=== PATIENT | male | born 1970 ===

== ENCOUNTER 2016-09-01 15:41 | Inpatient (IN) | payer OTHER ==
[~2016-09-01] VITALS: Ht 157.5 cm; Wt 61.9 kg
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
[2016-09-01] MEDS ORDERED: Ondansetron 2 mg/mL 2 mL Inj IVPUSH PRN ×3 (15:50→18:40)
[2016-09-01] MEDS ORDERED: HYDROmorphone 0.5 mg/0.5 mL iSecure Syringe IVPUSH PRN (15:50)
[2016-09-01] MEDS ORDERED: 0.9% Sodium Chloride 2,000 ML IV ONE (15:50)
[2016-09-01 16:12] LABS: BASOPHILS % (AUTO) 0.3 % (0-3); EOSINOPHILS % (AUTO) 0 % (0-5); MONOCYTES % (AUTO) 4.2 % (4-12); Mean Corpuscular Volume 84.2 fL (81-100); Platelet Count 335 bil/L (150-400)
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
[2016-09-01 16:33] LABS: INR 0.94 ratio
[2016-09-01 16:38] LABS: Magnesium 1.7 mg/dL (1.6-2.6)
--- NOTE | 2016-09-01 16:45 | DRSVH ---
PROCEDURE: CT BRAIN WITHOUT CONTRAST ([id number]) INDICATIONS: aloc TECHNIQUE: Noncontrast 4.5 mm thick angled axial sections acquired from the foramen magnum to the vertex, with c oronal reformats. COMPARISON: None. FINDINGS: Image quality: Excellent. CSF spaces: Basal cisterns are patent. No extra-axial fluid collections. Ventricles are normal in size and shape. Brain: No midline shift. No intracranial masses or hemorrhage. Kelley-white matter interface is norm al. Skull and face: Calvarium and visualized facial bones are intact, without suspicious lesions. Sinuses: Visualized sinuses and mastoids are clear. IMPRESSION: No CT evidence of acute intracranial pathology. Dictated by: Ike Mcdonnell M.D. on 09/01/2016 at 16:35 Approved by: Ike Mcdonnell M.D. on 09/01/2016 at 16:38
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
[2016-09-01] MEDS ORDERED: 0.9% Sodium Chloride 1,000 ML IV ONE (17:00)
[2016-09-01] MEDS ORDERED: Lactated Ringer's 1,000 ML IV ONE ×2 (17:00)
[2016-09-01] MEDS ORDERED: Lactated Ringer's 1,000 ML IV SCH (17:13)
[2016-09-01] MEDS ORDERED: Lactated Ringer's 500 ML IV PRN (17:13)
[2016-09-01] MEDS ORDERED: MetoCLOpramide 5 mg/mL 2 mL Inj IVPUSH PRN ×2 (17:15→18:40)
[2016-09-01] MEDS ORDERED: Phenylephrine 10,000 mCg/mL Inj IVPUSH PRN (17:15)
[2016-09-01] MEDS ORDERED: Labetalol 5 mg/mL 4 mL Inj IV PRN (17:15)
[2016-09-01] MEDS ORDERED: Atropine 0.4 mg/mL Inj IVPUSH PRN (17:15)
[2016-09-01] MEDS ORDERED: EPHEDrine Sulfate 50 mg/mL Inj IVPUSH PRN (17:15)
[2016-09-01] MEDS ORDERED: HYDROmorphone 1 mg/mL Inj IVPUSH PRN (17:15)
--- NOTE | 2016-09-01 17:17 | PCM.HPANE ---
Patient Data Surgeon Admitting Provider: Attending Provider:Michelle Cat MD Primary Care Physician:Other,Physician Other Provider: Reason for Visit Trauma Ht/WT & BMI Body Mass Index Past Anesthesia History Anesthesia History: Denies:: Abnormal Airway, Anesthesia Reactions, Difficult Intubation, Fam Anesthesia Reaction, Fam Malignant Hypertherm, Malignant Hyperthermia Diabetes History Hx Diabetes?: No History History of ENT Problems?: No HEENT History: Denies:: Abnormal Airway Cataracts Difficult Intubation Dysphagia Glaucoma Hearing Problem Sinus Problem TMJ Denture Type: None Teeth Condition: Within Normal Limits Hx of Heart Problems?: No Cardiovascular History: Denies:: AICD Abdominal Aortic Aneurism Atrial Fibrillation Cardiac Surgery Chest Pain Congestive Heart Failure Coronary Artery Disease Edema Heart Murmur Hypertension Irregular Heartbeat Pacemaker Peripheral Vascular Rheumatic Fever Thrombophlebitis Valvular Heart Disease Hx of Respiratory Problem?: No Respiratory History: Denies:: Asthma COPD Chest Surgery Cough Dyspnea Emphysema Hemoptysis Oxygen Administration Pneumonia Pulmonary Embolism Tuberculosis Use of C-PAP Machine Use of Inhalers / NEBS Hx Neurologic Problems?: No Hx of GI Problems?: No Hx of Problems?: No Hx Musculoskeletal Problems?: No Hx of Psycho/Social Problems?: No Hx Surgeries?: No Hx Alcohol Use: NoHx Substance Use: No Smoking Status: Unknown if Ever Smoker Stop/Bang Risk Assessment Category Category 1A: Patient has history of documented sleep apnea, and HAS NOT received any narcotic, sedative or anesthesia administration during this stay. Category 1B: Patient has history of documented sleep apnea, and HAS received any narcotic , sedative or anesthesia administration during this stay Category 2: Patient has SUSPECTED Obstructive Sleep Apnea, and HAS received any narcotic , sedative or anesthesia administration during this stay. Category 3: Patient has SUSPECTED Obstructive Sleep Apnea and HAS NOT received narcotic, sedative or anesthesia administration during this stay. Category 4: Outpatient in Procedural Areas with known sleep apnea or who screen positive for High Risk via the STOP/BANG questionnaire. Exam Exam General Appearance: Other (Not responding) HEENT/AIRWAY: Other (Neck laceration R neck) Meds/Labs/Diagnostics Labs Test 09/01/16 16:02 09/01/16 16:30 White Blood Count 23.3th/mm3 (3.8-10.1) Red Blood Count 5.14mil/mm3 (4.40-5.80) Mean Corpuscular Volume 84.2fL (81-100) Mean Corpuscular Hemoglobin 30.0pg (27.0-35.0) Mean Corpuscular Hemoglobin Concent 35.6% (32.0-37.0) Red Cell Distribution Width 12.5% (12.3-15.4) Platelet Count 335bil/L (150-400) Neutrophils (%) (Auto) 88.0% (40-74) Lymphocytes (%) (Auto) 7.1% (14-46) Monocytes (%) (Auto) 4.2% (4-12) Eosinophils (%) (Auto) 0% (0-5) Basophils (%) (Auto) 0.3% (0-3) Prothrombin Time 10.0sec (8.1-12.5) Prothromb Time International Ratio 0.94ratio Activated Partial Thromboplast Time 20.1sec (22.8-33.0) Sodium Level 145mEq/L (134-144) Potassium Level 3.8mEq/L (3.5-5.2) Chloride Level 112mEq/L (97-108) Carbon Dioxide Level 19mmol/L (18-29) Blood Urea Nitrogen 12mg/dL (6-24) Creatinine 0.84mg/dL (0.76-1.27) Estimat Glomerular Filtration Rate 104mL/min (>59) Glucose Level 124mg/dL (60-99) Calcium Level 7.5mg/dL (8.5-10.1) Magnesium Level 1.7mg/dL (1.6-2.6) Total Bilirubin 0.4mg/dL (0.0-1.2) Aspartate Amino Transf (AST/SGOT) 23U/L (0-50) Alanine Aminotransferase (ALT/SGPT) 36U/L (0-44) Alkaline Phosphatase 60U/L (25-150) Total Protein 5.6g/dL (6.4-8.4) Albumin 3.0g/dL (3.4-5.0) Hold Gomez Top Tube Received (Received) Alcohols < 10mg/dL (0-10) Hemoglobin 11.5g/dL (13.8-17.2) Hematocrit 33.0% (41.0-50.0) Plan Impression Patient chart reviewed, patient interviewed and anesthestic plan with risks, benefits, and alternatives discussed, and informed consent obtained. ASA Physical Status: ASA2 Plus Emergency Anesthetic Plan: GA Other This was an emergency. No interview or consent was performed. Everything was checked negative in order to sign the note Husam Byrne MD Sep 01, 2016 17:17
--- NOTE | 2016-09-01 18:03 | PCM.ENDEGD ---
EGD Date of Service: Sep 01, 2016 Physician Ricardo Edward MD Pre Procedure Diagnosis: neck trauma Post Procedure Dx & Findings: no esophageal trauma Procedure Esophagogastroduodenoscopy PROCEDURE IN DETAIL: Pt was intubated and sedated. Under direct visualization, video endoscope was placed in the pt's mouth and advanced into the esophagus. Scope was advanced slowly into the esophagus. Air was insufflated and waster injected. No esophageal tear or trauma noted. There was tinge of blood noted distal esophagus but washed quickly. The blood probably from blood that he swallowed earlier. Scope further advanced into the stomach and advanced to mid stomach ie body. No food ulceration or erosion or mass noted. IMPRESSION NO trauma of esophagus Recommendation Acid suppression Presedation Assessment Risks and Benefits Informed consent was obtained from the patient after all risks and benefits including but not limited to drug reaction, infection, pain, bleeding, perforation, as well as alternatives were discussed. Patient monitoring Continuous pulse oximetry, cardiac monitoring, blood pressure monitoring, IV access, and oxygen at 2L per nasal cannula. Complications There were no periprocedural complications identified. Post Procedure Plan Post Procedure Recommendations 1. Restrict activities today. 2. Resume normal activities in the morning. 3. Resume medications. 4. GERD behavioral modification: - Avoid fatty, acidic, spicy, large meals - Do not lie down after meals - Do not eat or drink anything for at least 2 1/2 hours before going to bed at night - Discontinue tobacco and alcohol - Decrease or avoid caffeine - Avoid chocolate and mints - Decrease weight - Avoid aspirin and non steroidal anti-inflammatory agents (NSAID) such as Aleve, Advil, Mobic, Naproxen, Ibuprofen, etc 5. Add proton pump inhibitor. Take 30 minutes before 1st meal of the day. 6. Patient informed of normal post procedure side effects as bloating, drowsiness, blood streaking in the stool 7. If gastric biopsy reveal H.pylori, continue with appropriate treatment 8. If small bowel biopsy reveals celiac, continue with appropriate treatment 9. Please don't hesitate to call me with any questions Ricardo Edward MD Sep 01, 2016 18:03
[2016-09-01 18:04] VITALS: BP 140/84; PULSE 114; RESP 20; O2SAT 100
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
[2016-09-01 18:12] VITALS: BP 137/79; PULSE 115; RESP 20; O2SAT 100
[2016-09-01 18:15] VITALS: BP 135/78; PULSE 115; RESP 20; O2SAT 100
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
[2016-09-01] MEDS ORDERED: Bupivacaine-MPF 0.5% W/EPI 30 mL Inj INFILTRATE ONE (18:17)
[2016-09-01] MEDS: Dextrose 5% Lactated Ringer's 1,000 ML IV SCH (18:37)
[2016-09-01] MEDS ORDERED: Polyethylene Glycol (PEG) 17 Gm Powder PO PRN (18:40)
[2016-09-01 18:44] VITALS: BP 133/85; PULSE 117; RESP 20; O2SAT 100
[2016-09-01 18:44] LABS: Mean Corpuscular Hemoglobin 30.1 pg (27.0-35.0); Mean Corpuscular Volume 86.6 fL (81-100)
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
[2016-09-01] MEDS: fentaNYL-PF 50 mCg/mL 2 mL Inj IVPUSH PRN ×2 (19:10→19:18)
[2016-09-01] MEDS ORDERED: Propofol 10,000 mCg/mL 20 mL Inj ONE (19:38)
[2016-09-01] MEDS ORDERED: Dexamethasone 4 mg/mL Inj ONE (19:38)
[2016-09-01] MEDS ORDERED: fentaNYL-PF 50 mCg/mL 2 mL Inj ONE (19:38)
[2016-09-01] MEDS ORDERED: Succinylcholine Chloride 20 mg/mL 5 mL Inj ONE (19:38)
[2016-09-01] MEDS ORDERED: Rocuronium 10 mg/mL 5 mL Inj ONE (19:38)
[2016-09-01] MEDS ORDERED: EPHEDrine/NS 5 mg/mL 5 mL Syringe ONE (19:38)
[2016-09-01] MEDS ORDERED: Ondansetron 2 mg/mL 2 mL Inj ONE (19:38)
[2016-09-01 19:50] VITALS: BP 133/84; PULSE 111; RESP 20; O2SAT 96
[2016-09-01] MEDS: Acetaminophen IV 1,000 MG in IV Premix 1 EACH IV SCH (20:30)
[2016-09-01 23:56] VITALS: BP 144/76; PULSE 133; RESP 16; O2SAT 97
[2016-09-02] MEDS: CeFAZolin Inj 2 GM in IV Premix 1 EACH IV SCH ×3 (00:22→15:32)
[2016-09-02 01:50] VITALS: PULSE 114
[2016-09-02] MEDS: Acetaminophen IV 1,000 MG in IV Premix 1 EACH IV SCH ×4 (01:50→20:30)
--- NOTE | 2016-09-02 02:27 | NUR ---
NEW ADMIT Pt arrived to the floor still drowzy/sedated, but able to follow commands. Pt has a right neck wound, dressing CDI and a TLS drain w/serosanguineous drainage. Pt RA, D5LR @ 100, pt denies pain on assessment. Pt c/o throat pain later in the evening and requested 1mg IV Dilaudid and 4mg Melatonin for sleep with good results. Pt's HR was in 130's on vitals check, EKG 12 lead and Tele ordered for further monitoring.
[2016-09-02] MEDS: Dextrose 5% Lactated Ringer's 1,000 ML IV SCH (03:35)
[2016-09-02 04:01] VITALS: BP 131/79; PULSE 107; RESP 16; O2SAT 99
--- NOTE | 2016-09-02 05:25 | NUR ---
DIET Pt would like his diet to be re-evaluated in the AM. Pt stated that he "needed more nutrition to get better".
[2016-09-02 06:15] LABS: BASOPHILS % (AUTO) 0.1 % (0-3); EOSINOPHILS % (AUTO) 0 % (0-5); MONOCYTES % (AUTO) 3.2 % (4-12); Mean Corpuscular Hemoglobin 30.4 pg (27.0-35.0); Mean Corpuscular Volume 86.7 fL (81-100); NEUTROPHILS % (AUTO) 86.1 % (40-74); Platelet Count 228 bil/L (150-400)
--- NOTE | 2016-09-02 08:12 | PCM.PNSURG ---
Subjective Visit Information: Reason for Visit Trauma Surgery/Surgery Date Post-Op Day # Date of Admission: Sep 01, 2016 at 19:37 Hospital Day # Subjective: Stable overnight. Mild tachycardia from 110s trending down to 100s. UOP adequate. Tolerated clears. 10mL drain output. Hct down to 31. Leukocytosis improving. Objective Vital Sign- Last 8 Hours Date Time Temp Pulse Resp B/P Pulse Ox O2 Delivery O2 Flow Rate FiO2 09/02/16 04:01 36.1 107 16 131/79 99 Room Air 09/02/16 01:50 114 Intake and Output- Last 8 Hour 09/02/16 Cumulative From/Thru 07:00 09/01/16 17:00 - 09/02/16 06:48 Intake Total 200 ml 3000 ml Output Total 510 ml 820 ml Balance -310 ml 2180 ml Intake Oral 200 ml 200 ml IV Total 2800 ml Output Urine Total 500 ml 800 ml Drainage Total 10 ml 10 ml Estimated Blood Loss 10 ml # Voids 1 1 # Bowel Movements 0 0 General: Alert, Cooperative, No Acute Distress Extremities: Other (R neck with dermabond intact, drain with ~3 mL serosanguinous fluid.) Result Diagram: 09/02/1651209/02/16512 Assessment & Plan Impression 46yom POD1 R neck exploration with mild tachycardia. Not actively bleeding. Problems: Plan N: oral pain control CV/R: EKG for tachycardia GI: Advance to regular diet : Monitor UOP. Will likely d/c MIVF later today after he is eating. Heme: SCDs for ppx. ID: [id number] for ppx given contaminated wound Psy: Consult by Dr. Stallings today Disp: Inpt status, pending resolution of tachycardia, tolerance of diet, psychiatric disposition organization. Patient privacy according to HIPAA is to be respected on all levels of patient care. Michelle Cat MD Sep 02, 2016 08:12
[2016-09-02 09:02] VITALS: BP 111/64; PULSE 120; RESP 15; O2SAT 96
[2016-09-02 09:45] VITALS: PULSE 110
[2016-09-02 12:40] VITALS: BP 111/71; PULSE 108; RESP 18; O2SAT 98
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
--- NOTE | 2016-09-02 18:26 | NUR ---
Behavior- Patient has been alert and oriented. Quiet, but interacting with staff when spoken to. Denies complaints of discomfort. Neck incision clean/dry. TLS drain with minimal amt. of drainage. Up to bathroom and gait is steady. Heart rate up to 120-130 with activity. Denies dizziness or weakness when up. Resting heart rate 100's.
[2016-09-02 20:13] VITALS: BP 112/73; PULSE 101; RESP 17; O2SAT 98
[2016-09-03] MEDS: CeFAZolin Inj 2 GM in IV Premix 1 EACH IV SCH (00:12)
[2016-09-03 05:00] VITALS: BP 111/68; PULSE 90; RESP 16; O2SAT 98
[2016-09-03 05:09] VITALS: PULSE 80
--- NOTE | 2016-09-03 05:33 | NUR ---
Comfort Pt denies any pain, refuses scheduled IV Tylenol and Melatonin. Pt is pleasant, appropriate and cooperative, requests to be bothered as little as possible to be able to achieve a good nights sleep. Sitter in room at all times. Pt appears to be asleep for most of night.
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
[2016-09-03 06:08] VITALS: PULSE 104
[2016-09-03 08:00] VITALS: PULSE 98
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
[2016-09-03 10:01] VITALS: BP 103/67; PULSE 96; RESP 18; O2SAT 97
--- NOTE | 2016-09-03 12:57 | NUR ---
Social Work- Multidisciplinary Rounds Pt discussed between otolaryngology teacher, UR RN and CARBURETOR MECHANIC. Surgery is primary service. Per psychiatry note, inpt setting is recommended when pt is medically stable. If pt requests discharge, [facility] will be dispatched. Per otolaryngology teacher, pt has TLS drain in neck. SW will continue to follow as requested for discharge planning needs. Albertina Gaxiola CARBURETOR MECHANIC
[2016-09-03 13:13] VITALS: BP 111/71; PULSE 113; RESP 18; O2SAT 97
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
[2016-09-03] MEDS ORDERED: Acetaminophen PO (15:03)
[2016-09-03] MEDS ORDERED: KLO1T PO (15:03)
[2016-09-03] MEDS ORDERED: ESCI10TA52 PO (15:03)
[2016-09-03] MEDS ORDERED: MIRT15TA6 PO (15:03)
[2016-09-03] MEDS ORDERED: CEPH500C PO (15:03)
--- NOTE | 2016-09-03 15:55 | NUR ---
Transfer Pt transferred to [facility] at 1545, report called to Ar[place]ia with all questions answered. Tele DC'd, SR 110 at this time. PIV DC'd. All belongings with pt. He is agreeable to transfer and reliably agrees to no self harm contract while in the hospital. Tylenol and ice effective for pain control. Drain removed this morning, gauze and tegaderm for dressing. Incision shows no signs of infection in neck.
[2016-09-03] MEDS ORDERED: Magnesium Hydroxide 10 mL Oral Concentration PO PRN (17:40)
[2016-09-03] MEDS ORDERED: Benzocaine-Menthol Lozenge 2/Pkg PO PRN (17:40)
[2016-09-03] MEDS ORDERED: hydrOXYzine Pamoate 25 mg Capsule PO PRN (17:40)
[2016-09-03] MEDS ORDERED: Alum-Mag Hydrox-Simeth 30 mL Suspension PO PRN (17:40)
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
--- NOTE | 2016-09-04 05:09 | NUR ---
OBSERVATIONS Pt was pleasant and cooperative with staff, appropriate with peers. Pt was somewhat isolative but did sit in common dining area for a short time in the evening and participated in evening wrap-up group. During group pt stated that he was feeling slightly overwhelmed and was still getting acquainted or "assimilated" on the unit. Pt was reported asleep at 2230 and slept through the night. Maintained Q15 checks for safety as directed.
--- NOTE | 2016-09-04 05:17 | NUR ---
nursing, nights, 11-7 s/o- has appeared to sleep after 0 during q 15 minute assessments. a- no apparent distress. p- monitor behavior/emotional state, quality, times and amount of sleep, use and effect of medication. stephenie
[2016-09-04 10:19] VITALS: BP 129/76; PULSE 105; RESP 16
--- NOTE | 2016-09-04 11:25 | NUR ---
Nursing Note [id number] Behavior S/O: Pt out of room for breakfast. Pt ate 80%. Pt reports he watches TV to "veg out." Activities offered. Pt in room most of the day laying in bed. Pt has consented to talk with briefcase sewer. Conversation tracking clear & organized with normal rate & rhythm. He does note seek out conversation with peers or staff. Affect is very flat. Pt calm & cooperative. A: Pt is isolative & has difficulty on open unit. P: Provide supportive environment. Monitor medications & effects. Case management to f/u with pt.
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
--- NOTE | 2016-09-04 19:06 | NUR ---
[facility] Day Shift Pt maintained behavioral control throughout the shift. Pt affect appears flat. Pt spends the majority of the shift resting/reading in his room, only briefly attending unit activities in the afternoon. Pt is appropriate with staff and peers when active on the unit, but is not social. Pt attended community meeting in the AM and one afternoon group activity. Pt attended all meals and ate approx 80% of all meals.
--- NOTE | 2016-09-04 20:18 | NUR ---
payroll and benefits manager/Counselor: S/O: Patient slept 7.5 hours last night per staff. Patient denies S/I and H/I. He also denies auditory and visual hallucinations. Depression is 6/10 and anxiety is 4-5/10. A: Patient is cooperative, unkept, restricted affect, depressed. P: Follow care plan, coordinate with out-patient providers.
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
--- NOTE | 2016-09-05 04:56 | NUR ---
Nursing Noc [id number] Pt noted to be asleep at 2215 and has remained asleep throughout the shift. Continuing with Q15 minute safety checks through the night. Monitoring mood, behavior and emotional state, sleep times and quality. [facility]
[2016-09-05 10:00] VITALS: BP 122/73; PULSE 113; RESP 14
--- NOTE | 2016-09-05 10:25 | NUR ---
day shift nursing note-Depression/anxiety/SI S/O-Pt. was up for breakfast and had an adequate appetite. He went to morning group, did some art work and wanted to get some sun outside today. He denies audio or visual hallucinations. He has a restricted affect but has good eye contact and a regular rate and rhythm to his speech. He does not have conversation with his peers but is polite and cooperative. He stated he slept well last night. He denies SI or HI. He rates his depression and anxiety at 5/10. He stated he will try to read a book today and did not want journaling material. He showered first thing int the morning after breakfast. A-Depressed. P-Monitor for safety per protocol. Assess efficacy of meds to manage target sxs. Encourage engagement in groups.
--- NOTE | 2016-09-05 11:52 | NUR ---
Value Analyst/Counselor S: I'm doing ok." O: Patient denies any SI or HI, no AVH, adn rated his anxiety at a 1 and his depression at a 4/5/ He slept for 7.75 hours last night. A: Patient was in the common area and watching tv. He has been out of his room, and was interacting with other patients this morning. His affect was fairly flat and he replied mostly with jus 1 word answers. He stated that he ate, and may participate in afternoon group. P: Follow care plan and coordinate with outpatient providers.
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
[2016-09-05 19:35] LABS: BASOPHILS % (AUTO) 0.4 % (0-3); EOSINOPHILS % (AUTO) 1.9 % (0-5); MONOCYTES % (AUTO) 5.6 % (4-12); Mean Corpuscular Hemoglobin 30.3 pg (27.0-35.0); Mean Corpuscular Volume 88.6 fL (81-100); NEUTROPHILS % (AUTO) 58.8 % (40-74); Platelet Count 291 bil/L (150-400)
[2016-09-05] MEDS: Cephalexin Suspension 250 mg/5 mL 100 mL Suspension PO SCH (21:03)
--- NOTE | 2016-09-05 21:38 | NUR ---
Nurses Note Evening "I'm not feeling any worse." Patients' mood remains dysthymic,affect constricted and sad. He has been out in the community playing ball on the patio with peers,attended evening meeting. Patient was seen by Dr Siddiqui and a CT scan with contrast completed to R/O excessive swelling,hematomas impacting his swallowing or respiratory status. Patient denied feelings of self harm. Patient spoke with his this evening and that appeared to improve his mood briefly.Will maintain q 15min. checks for safety and support. Addendum: 09/05/16 at 2204 by DEJAN EDWARDS RN Amended: Links added.
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
--- NOTE | 2016-09-06 06:01 | NUR ---
Nursing Note Mainframe Programmer Analyst 7pm to 7am Pt out of bed for wrap up, primarily observed others. He denies SI but may minimizing this. Affect and mood appear depressed however it is reported that he was social with peers on day shift and played ball outside. He was asleep by 2245 and slept through the night uninterrupted. Monitored pt q 15 minutes for safety, location and accountability. Addendum: 09/06/16 at 0608 by CLARA MOY RN Amended: Links added.
[2016-09-06 06:25] VITALS: BP 111/76; PULSE 126; RESP 18
[2016-09-06] MEDS: Cephalexin Suspension 250 mg/5 mL 100 mL Suspension PO SCH ×4 (08:35→21:01)
[2016-09-06 09:37] LABS: BASOPHILS % (AUTO) 0.5 % (0-3); EOSINOPHILS % (AUTO) 1.9 % (0-5); MONOCYTES % (AUTO) 4.2 % (4-12); Mean Corpuscular Hemoglobin 30.2 pg (27.0-35.0); Mean Corpuscular Volume 88.5 fL (81-100); NEUTROPHILS % (AUTO) 65.4 % (40-74); Platelet Count 279 bil/L (150-400)
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
--- NOTE | 2016-09-06 17:50 | NUR ---
Dayshift nursing note S/O: Patient is participating with group and in the milieu. Patient was offered to change rooms from 219 to 230, but patient declined to move saying I dont want to be a bother, its ok A: Pt appears soft spoken without pressures speech. Pt states that his swallowing is better today, referring to his neck. Swelling in the neck appears stable if not reduced a bit. No complaints of pain, no redness or tenderness around the incision area, no drainage noted. Pt appears well groomed, Denies SI/HI. Had his visitor come in today and help with bills and mail on laptop which was ok to use with patient and supervision from friend. P: Follow plan of care, monitor behaviors. Monitor for side effects.
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
--- NOTE | 2016-09-06 21:12 | NUR ---
Observations 0900 - 2130 Pt affect and mood was flat, brighter when engaged, isolative and content. Pt was in his room most of the shift. Pt was pleasant, polite and cooperative when approached. Pt maintained behavior throughout the shift. Pt speech and eye contact was better today. Pt was offered snack but he declined. Pt attended community meeting and set a daily goal. Pt lightly attended group and unit activities. Pt attended meals in D.R and ate approximately 75% of his meals. Pt was observed every 15 minutes through the shift as ordered.
--- NOTE | 2016-09-06 23:22 | NUR ---
Observations 1900 to 0700 Met with pt individually to discuss daily goals, pt met goal of showering. Pt declined a snack when offered. Pt met with a visitor during visiting hours in the multipurpose room. Pt maintained behavioral control and showed no signs of abnormal behavior. Pt is pleasant and cooperative. Pt appeared asleep at 2114 and has remained asleep. Pt respirations were observed when asleep. Staff completed 15 min close observations as ordered.
--- NOTE | 2016-09-07 04:42 | NUR ---
appraiser art [phone] Pt had an uneventful night and took all medications as scheduled along with requested Ambien for insomnia. Pt did not have any suicidal ideations or bizarre behaviors. Pt alert and oriented and had a visitor visit with him. Pt very soft spoken and will make needs known. Pt's incision no s/sx of redness, tenderness, or drainage noted at this time. Continue to monitor for patient's emotional well being, mood changes, behavioral changes, and q15min checks for safety. Care continues.
[2016-09-07] MEDS: Cephalexin Suspension 250 mg/5 mL 100 mL Suspension PO SCH ×4 (06:11→21:11)
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
[2016-09-07 13:00] VITALS: BP 112/79; PULSE 113; RESP 16
--- NOTE | 2016-09-07 15:27 | NUR ---
Fishing Guide/Counselor S:"I'm worried about my and kids." O: Patient did not express any SI or HI, no AVH. He rated his anxiety as being periodic, and his depression at a 5. A: Patient was out on the patio walking at the time of interview. He was quiet but more open to questions and conversation.Very quiet in his answers, soft spoken. Stated that he was worried about his and kids. P: Follow care plan and coordinate with outpatient providers.
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
--- NOTE | 2016-09-07 23:50 | NUR ---
NOC OBS [id number] Pt out on unit some in evening. Had visitor and interacted appropriately. Asleep at 2300. Observed Q15 as ordered.
--- NOTE | 2016-09-08 06:01 | NUR ---
shift engineer [id number] Pt requested Ambien for insomnia and appeared asleep for 7hrs. Pt did not express suicidal ideations or have bizarre behaviors. Pt's neck incision with no s/sx of redness, tenderness, or drainage noted at this time. Continue to monitor for patient's emotional well being, mood changes, behavioral changes, and q15min checks for safety. Care continues.
[2016-09-08] MEDS: Cephalexin Suspension 250 mg/5 mL 100 mL Suspension PO SCH ×4 (06:08→20:19)
[2016-09-08 08:05] VITALS: BP 110/72; PULSE 102; RESP 18
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
--- NOTE | 2016-09-08 18:09 | NUR ---
Nursing Day Note- Patient up in dining room for meals and watching TV, keeping mostly to himself. Very polite making eye contact when spoken to. Patient had a long meeting with Dr Marroquin from [facility] this afternoon. Patient denies neck incision discomfort. It was noted to be reddened and swollen. Dr Cat from surgery here to see patient and assess wound.
--- NOTE | 2016-09-08 18:46 | NUR ---
Obs Dayshift Pt appears depressed, sad. During free times he is in bed, quiet and isolating. Pt is co-operative w/ staff, appropriate. Pt had a few meetings today and missed two groups. Pt made a few calls to , head down, sad affect, ok eye contact. Pt turned away a few visitors. Eats meals in the milieu, little to no engaging w/ peers. Good ADL's, Good meals
--- NOTE | 2016-09-09 01:28 | NUR ---
mini shifter [id number] Pt cooperative with care and very lightly spoken. Pt participated in wrap up group with peers without behavioral issues noted. Assessed neck wound, incision well approximated, noted light redness and a little swelling. MD assessed earlier this afternoon and no new orders noted at this time. Pt denies pain and discomfort. No suicidal ideations or bizarre behaviors. Pt requested Ambien for insomnia and appears to be asleep in bed. Continue to monitor for mood changes, emotional well being, and q15min checks for safety. Care continues.
[2016-09-09] MEDS: Cephalexin Suspension 250 mg/5 mL 100 mL Suspension PO SCH ×2 (05:36→11:30)
[2016-09-09 10:13] VITALS: BP 109/75; PULSE 112; RESP 16
--- NOTE | 2016-09-09 12:01 | NUR ---
NURSING DAYS 7-7 (09/09) S/O- Patient states "I needed to make decision about about out patient treatment. I am not comfortable getting the airport, getting on a plane to [place], and then getting to the treatment center. Also the cost is a concern. My family will not be back until the , so option two is to stay here until then." Patient cooperative with care, attending group meeting and meals. Patient did refuse his antibiotic today. WBC 6.5, neck wound does not show any outward signs of infection and appears to be healing well. Patient denies SI, rates depression 06/08, and goal for day is to make outpatient treatment decision. Patient showered this am. A- Nurse offered to see if anything could be done and patient replied that SW and team are working on helping him. P-Maintain patient safety and help with outpatient treatment plan.
--- NOTE | 2016-09-09 12:31 | NUR ---
[facility] Day Shift Pt has maintained behavioral control throughout the shift. Pt affect appears mostly flat, somewhat brighter when engaged with staff and peers. Pt spends most of the shift resting/reading in his room, but is active on the unit when prompted by staff. Pt is pleasant and appropriate with staff and peers when active on the unit. Pt attended community meeting and AM group and participated actively. Pt has attended all meals at this time and has eaten approx 100% of all meals.
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
--- NOTE | 2016-09-10 04:42 | NUR ---
shift commander [id number] Pt cooperative with care and took HS meds including PRN Ambien, except for Remeron. "I want to see how things go without it." Pt participated in wrap up group and interacted with peers. No suicidal ideations or bizarre behavioral issues. Pt appears to be asleep in bed without distress noted at this time. Continue to monitor for mood changes, emotional well being, and q15min checks for safety.
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
[2016-09-10 15:58] VITALS: BP 107/74; PULSE 95; RESP 15
--- NOTE | 2016-09-10 16:01 | NUR ---
Executive Vice President Business Development/Counselor S:"I'm feeling really overwhelmed with everything." O: Patient denies any SI and HI, no AVH, and could not explain his anxiety or depression. A: Patient has been somewhat interactive on the unit, and has been friendly with staff and other patients. He participated in group. P: Follow care plan and coordinate with outpatient providers.
--- NOTE | 2016-09-10 17:02 | NUR ---
Nursing Note Daysmadelyn S: " I feel like I just cant provide for my family anymore. When I picture it in my head they look like the people in [place], where they are starving and homeless." O: Patient believes, as he states, he pictures his life all black, that he has lost his chance to be a provider for his family. He feels like he has ended his path in life already. We talked about setbacks in life and that its not an end its just a oleksandr. Patient is participating with group and in the milieu. He verbalizes that he could participate more. Pt states that they want him to go to a facility in another state, but financially he cannot afford to do that, so he feels hopeless. A: Pt appears soft spoken without pressures speech. Swelling in the neck appears much less swollen then previously noted. No complaints of pain, no redness or tenderness around the incision area, no drainage noted. Pt appears well groomed, Denies SI/HI. P: Follow plan of care, monitor behaviors. Monitor for side effects.
--- NOTE | 2016-09-10 23:57 | NUR ---
Observations 1900 to 0700 Pt did not attend wrap up group. Pt did not eat a snack when offered. Pt isolated to room throughout shift. Pt maintained behavioral control and showed no signs of abnormal behavior. Pt appeared asleep at 2130 and has remained asleep. Pt respirations were observed when asleep. Staff completed 15 min close observations as ordered.
--- NOTE | 2016-09-11 04:30 | NUR ---
Nursing Noc Pt isolative to room this shift. Requested PRN for anxiety and sleep. Noted to sleep through the night without difficulty. Continuing to monitor mood, emotional state and sleep times. Q15 minute safety checks performed through the night. CP
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
--- NOTE | 2016-09-11 13:44 | PCM.PNSURG ---
Subjective Visit Information: Reason for Visit Trauma Surgery/Surgery Date Post-Op Day # Date of Admission: Sep 01, 2016 at 19:37 Hospital Day # Subjective: Wound check performed. Fluctuance and induration present at medial aspect of R neck wound. I aspirated this at the bedside and sent a culture of the fluid which was somewhat murky and serosanguinous. No juan jose pus. I opened the medial aspect of the incision by 1 cm, compressed the R neck and approximately 5 -10mL of fluid was extracted; I then packed it with the corner of a piece of gauze using a cotton tipped applicator. Objective General: Alert, Oriented X3, Cooperative, No Acute Distress Neck: Other (R neck incision healing well, medial aspect opened with serosanguinous fluid drainage as noted above.) Result Diagram: 09/06/16 0850 Assessment & Plan Impression POD 10 R neck exploration Problems: Plan -Culture of fluid sent -1 week cephalexin ordered -I will change to a different antibiotic depending on culture results -Recommend packing with gauze 1-2 times daily; gauze and tape overlying it. Michelle Cat MD Sep 11, 2016 13:43
--- NOTE | 2016-09-11 17:06 | NUR ---
Dayshift Nursing Note: S: "Just feel stuck today" O: Pt feels like he is stagnant, that he is just stuck. The surgeon did come by and take a look at his incision, she opened the wound up and drained about 5cc fluid. Pt didnt want to go to DR after this because he was afraid the other patients would ask too many questions. Assured pt that I can make it the least amount of dressing when dinner came along as long as there was no draining, pt verbalizes understanding. A: Pt appears soft spoken without pressures speech. No complaints of pain, some erythema around the incision site, surgeon opened the incision and drained the wound, sending culture to lab for evaluation, pt restarted on Keflex, orders are to change dressing on the right neck 2 times a day, and use a cotton applicator to pack the wound bid. Pt appears well groomed, Denies SI/HI. P: Follow plan of care, monitor behaviors. Monitor for side effects.
--- NOTE | 2016-09-11 18:04 | NUR ---
[facility] Day Shift Pt affect and behavior unchanged from previous shifts. Pt maintained behavioral control throughout the shift. Pt affect appears flat. Pt spends the majority of the shift resting/reading in his room, only briefly attending unit activities in the afternoon. Pt is appropriate with staff and peers when active on the unit, but is not social. Pt did not attend afternoon group activity. Pt attended all meals and ate approx 80% of all meals.
[2016-09-11 18:57] VITALS: BP 111/79; PULSE 68; RESP 16
--- NOTE | 2016-09-11 19:51 | NUR ---
flight kitchen manager/Counselor: S:"I'm afraid I will have thoughts to hurt myself if I'm out of the hospital." O: Patient slept 7.5+ hours last night per staff. Patient reports thoughts of hurting himself if outside the hospital. He denies H/I. He also denies auditory and visual hallucinations. Anxiety is "high." A: Patient is cooperative, unkept, restricted affect, depressed, limited insight, limited judgment. P: Follow care plan, coordinate with out-patient providers.
--- NOTE | 2016-09-12 04:37 | NUR ---
Night [id number] Pt did not participate in wrap up group with peers due to insecurity of dressing to RT neck. Dressing c/d/i without drainage noted. No direct observation to neck wound. Denies pain. Pt did take HS meds along with Ambien 5mg and he fell asleep thereafter. Continue to monitor for mood changes, emotional well being, and q15min checks for safety. Care continues.
--- NOTE | 2016-09-12 09:23 | NUR ---
Dressing change Right neck dressing changed this AM around 0900. Previous dressing removed, minimal serous drainage noted. Applied one 4X4 gauze and secured it with tape. Pt tolerated well. NO reports of discomfort. Pt AOX3. Care ongoing.
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
--- NOTE | 2016-09-12 15:39 | NUR ---
[employer]/Counselor S:" I"m worried about my family being taken care of." O: Patient denied any SI or HI, no AVH, but somewhat high anxiety, due to uncertainty of what will happen. A: Patient is cooperative and friendly, but has secluded himself mostly to his room. He is depressed with limited insight and poor judgment. P: Follow care plan and coordinate with outpatient providers.
--- NOTE | 2016-09-12 15:57 | NUR ---
Mentation Pt alert and oriented. Has been in room most of the day, however he is coming out to common area for meals and a snack this morning. Not interacting much with other pts. Pt states he is feeling better and states he just needs rest. States he has a support system and that is his family. Pt did ask to use his cell phone to pay a bill. Monitored use. Pt also in contact with via text. Pt appreciative in letting him use his phone. Care ongoing.
--- NOTE | 2016-09-12 21:08 | NUR ---
Dressing Dressing changed to R neck. Site is well approximated with skin glue except for a small area that is almost healed, but is draining scant amount of sero-sang drainage. Site has not s/s of infection. PT has small amount of difficulty when swallowing pills, but was able to do so slowly. Wound cleaned with saline and dry gauze applied. There is no area that is deep enough for packing.
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
--- NOTE | 2016-09-13 05:17 | NUR ---
Nursing Noc [id number] Pt noted to be asleep at 2130 and has remained asleep throughout the shift. Continuing with Q15 minute safety checks through the night. Monitoring mood, behavior and emotional state, sleep times and quality. [facility]
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
--- NOTE | 2016-09-13 17:28 | NUR ---
dressing dressing changed this evening; dime sized sero sanguinous drainage with min [place] drainage; small amt of gauze pushed into open area with q-tip and covered with 4x4 and paper tape.
--- NOTE | 2016-09-13 17:48 | NUR ---
[facility] Day Shift Pt affect and behavior unchanged from previous shifts. Pt maintained behavioral control throughout the shift. Pt affect appears flat. Pt spends the majority of the shift resting/reading in his room, only briefly attending unit activities in the afternoon. Pt is appropriate with staff and peers when active on the unit, but is not social. Pt did not attend community meeting or afternoon group activity. Pt attended all meals and ate approx 80% of all meals.
--- NOTE | 2016-09-14 05:01 | NUR ---
casino shift manager [id number] S: "I'm worried about this." "It will take a long time to heal, look at the puss it's orange." Dressing to wound C/D/I with serosanguineous drainage noted when patient pulled down the gauze, so that this RN could view area. This RN offered to clean, pack, and apply a new gauze, but pt declined. "Look I'm not lying down." Pt observed sitting on the edge of his bed after this RN encouraged him to get up and attend wrap up group, but he declined deciding to ambulate in the hallway. Pt very hesitant to come out of his room r/t neck dressing and was encouraged to come to the med room for med administration, in which he agreed. Pt slept for 8hrs after requesting Ambien and Clonazepam. No distress noted. Continue to monitor mood changes, emotional well being, s/sx of infection and q15min checks for safety.
[2016-09-14 08:00] VITALS: BP 113/77; PULSE 76; RESP 20
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
--- NOTE | 2016-09-14 15:10 | NUR ---
Observations [id number] Pt polite, active on unit, friendly with peers and staff. Pt paced unit much of the day, using phone at times. He requested to move rooms due to another patient who shares a wall with him who has been very loud and noisy. Pt was able to move rooms as requested. He attended all meals, eating an average of 75%. He attended Community Meeting, focused on healing and medication. Pt was observed every 15 minutes of shift as directed.
--- NOTE | 2016-09-14 15:17 | NUR ---
Ux Manager/Counselor S: "I checked with [facility] and left a message." O: Patient denies any SI or HI, no AVH, no anxiety, and rated his depression at a baseline 5. A: Patient has been out in the milieu and walking the hallways. He has not interacted much with other patients but is not isolating. P: Follow care plans and coordinate with outpatient providers.
--- NOTE | 2016-09-14 17:38 | NUR ---
Nursing: Day shift: 07 to 1899 S: "I'm doing better...getting out of my room more...Having a room close to ___ was difficult. I was hoping to sleep tonight without sleep meds." O: Patient was out of his room a little more today. His facial expression is brighter. The wound on his neck had noticeable pink/yellow drainage when pt changed the 2x2 at 0800. Not able to pack wound. Temp not elevated. At 1700, pt stated he thought wound was better. Draining less. No surgical follow up rounding today. Dr. Cat who worked with pt on Wednesday not available this evening. Will check about surgical follow up tomorrow. Patient requested to change rooms and this was accommodated. He hopes the quieter room location will allow him to sleep without meds that he has required for sleep other nights. Denied suicidal intent at 1700. No requests for anxiety med support. A: Improving. No report of side effects of meds. P: Continue to assess for safety. Addendum: 09/14/16 at 1808 by DAVID CHENEY RN Amended: Links added.
[2016-09-15 08:10] VITALS: BP 106/74; PULSE 82; RESP 18
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
--- NOTE | 2016-09-15 17:35 | NUR ---
Observations [id number] Pt active on unit, participating in groups and unit activities. Pt attended all meals, eating 100%. Affect seems brighter, more engaged with staff and peers then in previous days. He attended Community Meeting, continuing to focus on healing and medications. Pt good with ADL's, communicative and appropriate with peers and staff. Pt observed every 15 minutes of shift as directed.
--- NOTE | 2016-09-15 17:56 | NUR ---
Nursin to 1899 S: Husam has been in his room most of the day. He comes out for meals and occasional brief activity but otherwise is in room. Avoids being with peers. Observed to be picking out a book to read. Changing wound dressing himself. States drainage is decreased to almost none. Was seen by Dr. Cat for surgical followup today. Pt did not discuss feelings about suicide attempt, depression or anxiety with service writer. Cooperative with all unit regulations. Took one phone call from friend. A: Quiet/nondisclosive presentation. P: Continue to observe regularly for safety. Support confidentiality. Addendum: 09/15/16 at 1806 by DAVID CHENEY RN Amended: Links added.
--- NOTE | 2016-09-16 05:46 | NUR ---
Nursing Noc Pt out to med room requesting HS medication and PRNs then back to room. Good eye contact, reality based thinking, goal oriented. Continuing to monitor mood behavior, emotional state and sleep times with Q15 minute safety checks. CP
[2016-09-16 09:11] VITALS: BP 118/73; PULSE 96; RESP 16
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
--- NOTE | 2016-09-16 16:14 | NUR ---
Manager Statistics/Counselor S/O: Patient stated that everything was the "same old, same old." A: Patient did not seem interested in talking, and appeared flat in affect. He was been walking up and down the hallways but does not engage with Counselors or the Family meeting scheduled for this weekend, potentially 09/21/16. P: Follow care plan and coordinate with outpatient providers.
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
--- NOTE | 2016-09-16 18:06 | NUR ---
[facility] Day Shift Pt affect and behavior unchanged from previous shifts. Pt maintained behavioral control throughout the shift. Pt affect appears flat, though brighter than noted on previous shifts. Pt spends the majority of the shift resting/reading in his room, only briefly attending unit activities in the afternoon. Pt is appropriate with staff and peers when active on the unit, but is not social. Pt attended community meeting, but did not actively attend group activities. Pt attended all meals and ate approx 80% of all meals.
--- NOTE | 2016-09-16 23:22 | NUR ---
Observations 1900 to 0700 Pt did not eat a snack. Pt spent free time in room reading. Pt maintained behavioral control and showed no signs of abnormal behavior. Pt appeared asleep at 2200 and has remained asleep. Pt respirations were observed when asleep. Staff completed 15 min close observations as ordered.
--- NOTE | 2016-09-17 04:55 | NUR ---
nursing, nights, 11-7 s/o- has appeared to sleep after 2200 during q 15 minute assessments. a- no apparent distress. p- monitor behavior/emotional state, quality, times and amount of sleep, use and effect of medication. stephenie
[2016-09-17 14:37] VITALS: BP 108/73; PULSE 96; RESP 16
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
--- NOTE | 2016-09-17 17:18 | NUR ---
[facility] Day Shift Pt affect and behavior unchanged from previous shifts. Pt maintained behavioral control throughout the shift. Pt affect appears flat. Pt spends the majority of the shift resting/reading in his room, only briefly attending unit activities in the afternoon. Pt is appropriate with staff and peers when active on the unit, but is not social. Pt attended community meeting, but did not actively attend group activities. Pt attended all meals and ate approx 80% of all meals.
--- NOTE | 2016-09-17 17:51 | NUR ---
[id number]. nurs. S: "It's both hard here because you don't have your normal amenities but also protective, when thinking of discharging and then facing family and what will happen going forward." O:Pt states that his anxiety is building as future mtgs and discharge get closer, pt states is taking steps to set up best course for his home and work situation, and some of anxiety comes from speculating how interactions will be and px solving situation that has occurred with work . Pt reported positive visit with friend today. A: Pt reporting depression level not worse, apprehensive, hoping that he can steer his situation in best possible direction actively engaged in care planning. P:CNCP
--- NOTE | 2016-09-17 22:40 | NUR ---
Observations 1900 to 0700 Pt attended and wrap up group and discussed daily goals with MHA. Pt ate a snack. Pt had several visitors during shift. Pt shaved. Pt is pleasant with staff. Pt maintained behavioral control and showed no signs of abnormal behavior. Staff completed 15 min close observations as ordered.
--- NOTE | 2016-09-18 01:32 | NUR ---
Nursing Noc Pt out to common area to obtain assistance with needs, noted to have visitors this evening and appeared relaxed and confident. Using PRN to assist with sleep, denies suicidal ideation at this time. Continuing to monitor mood behavior and emotional state. Q15 minute safety checks performed as directed. CP
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
[2016-09-18 15:31] VITALS: BP 108/78; PULSE 78; RESP 16
--- NOTE | 2016-09-18 18:57 | NUR ---
[facility] Day Shift Pt affect and behavior unchanged from previous shifts. Pt maintained behavioral control throughout the shift. Pt affect appears flat. Pt spends the majority of the shift resting/reading in his room, only briefly attending unit activities in the afternoon. Pt is appropriate with staff and peers when active on the unit, but is not social. Pt did not actively attend group activities throughout the shift. Pt attended all meals and ate approx 80% of all meals.
[2016-09-19 09:00] VITALS: BP 112/75; PULSE 80; RESP 17
--- NOTE | 2016-09-19 13:53 | NUR ---
day shift nursing note S/O-Pt. stated he slept well last night and has been eating well at all meals. He showers and gets up at a normal time. He reported he never has had any nightmares or adverse side effects from the medication he is on. He denies current SI and rates his depression at 6/10 and anxiety at 1/10. He is more interactive with bond underwriter and shows more eye contact and has more voice inflection than he has had in the past. He prefers to stay in his room and read because he feels a little bored with the activities here. He stated he did not know if the medication was helpful in regard to his depression because it can not easily be measured as he sees it. A-Depressed. Gaining insight. Seeking help. P-Encourage journaling and other coping mechanisms to deal with intense feelings. Monitor for safety per protocol. Assess efficacy of meds to manage depressive symptoms.
--- NOTE | 2016-09-19 17:44 | NUR ---
Observations 0700 to 1900 Pt attended community meeting. Pt went out on patio. Pt ate a snack. Pt had visitors during shift. Pt showered. Pt maintained behavioral control and showed no signs of abnormal behavior. Breakfast: 100%. Lunch: 100%. Staff completed 15 min close observations as ordered.
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
--- NOTE | 2016-09-20 03:58 | NUR ---
nursing, nights, 11-7 s- trazodone didn't work. i need to get my sleep normal. thank you. o- has appeared to sleep after 0. up at 2340. asked for and received 5 mg of ambien at 2345. returned for repeat 5 mg ambien and 50 mg vistaril at 0010. appeared to sleep after 0045. assessed q 15 minutes. a- insomnia, no apparent physical distress. p- monitor behavior/emotional state, quality, times and amount of sleep, use and effect of medication. stephenie
[2016-09-20 09:30] VITALS: BP 120/76; PULSE 105; RESP 18
--- NOTE | 2016-09-20 10:51 | NUR ---
Nursing days Pt reported "I didn't sleep well last night. The Trazodone didn't work or else it wasn't enough. My depression is about the same." He denied having thoughts of self harm this morning. He is responsive upon approach but keeps to himself for the majority of the time. He was walking the halls in the sparker and patcher and spent the later morning in his room. He does report feeling bored. He does spend some of his time reading books or magazines. He denies having any physical pain.
--- NOTE | 2016-09-20 18:48 | NUR ---
Observations 00 - 0 Pt affect and mood was brighter than previous shifts, friendly, a little guarded and minimally social with staff and peers. Pt was in his room most of the shift coming out and walked the hallway occasionally. Pt was pleasant, polite and cooperative when approached. Pt maintained behavior throughout the shift. Pt speech and eye contact was good. Pt was offered snack but he declined. Pt attended community meeting and set a couple of daily goals. Pt rated his mood 5/10, with 10 being the best. Pt lightly attended group and unit activities. Pt attended meals in [facility] and ate 100% of his meals. Pt visited with and his friend and it appeared to go well. Pt was observed every 15 minutes through the shift as ordered.
--- NOTE | 2016-09-20 20:14 | NUR ---
Nurses Note Evening Patient has been pleasant and on the periphery of the unit. He had several visitors to include his to manage family affairs. He has been social with peers in passing and and has attended the unit community groups. Will continue to encourage improved insight,coping skills,will maintain q 15min. checks for safety and support. Addendum: 09/20/16 at 2032 by DEJAN EDWARDS RN Amended: Links added.
[2016-09-20] MEDS ORDERED: hydrOXYzine Pamoate 25 mg Capsule PO PRN (20:50)
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
--- NOTE | 2016-09-21 07:23 | NUR ---
Nursing Note Palliative Care Nurse Practitioner 11pm to 7am Pt asleep at start of shift, awoke at midnight reporting that increase in trazadone to 50mg did not help him go to sleep and requested Ambien 10mg. Pt was able to return to bed and slept the remainder of the night without interruption. Monitored pt. with q 15 minute face checks for safety, location, and accountability.
[2016-09-21 08:30] VITALS: BP 104/78; PULSE 86; RESP 15
--- NOTE | 2016-09-21 14:19 | NUR ---
Nursing Days Pt cooperative with care, noted to be visiting with his peers as he walks the hallway. Taking medication as scheduled. He is c/o dry mouth from his medications. He was provided a Cepacol lozenge but he reports it was not helpful for cotton mouth. When he was asked if there was a certain time his would be visiting today. He stated that he did not think she would be able to come because she has too much to take care of with him and their children. He feels anxious but thinks he can manage at this time. Pt offered reading material or quiet activity to help with his boredom but he declined offered suggestions. He attended and participated in community meeting. No expressed suicidal ideation this shift.
--- NOTE | 2016-09-21 18:13 | NUR ---
Observations [id number] Pt expressed concerns regarding sleep, stating that he hasn't been able to sleep well and is working on adjusting medications to do so. "I'm worried about dealing with my family which is much more stimulating....and being exhausted." Pt also mentioned that he doesn't feel like he is making much process here, but it's a "waiting game" to determine a good med for sleep. "I can't shut my brain off." Pt attended all meals, but stated that he didn't feel like eating much- ate 75% breakfast, 40% lunch, and dinner. Pt was observed every 15 minutes of shift as directed.
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
--- NOTE | 2016-09-21 23:23 | NUR ---
NURS NOTE EVENING Pt perseverating about sleep medications. Expresses concern that he will not sleep with only melatonin and no other sleep aids. Dr. Mulligan prescribed PRN Seroquel for sleep and antidepressant augmentation. When video games storywriter asked pt about mood, pt had trouble articulating emotions and stated "not sleeping is a sign of depression."
--- NOTE | 2016-09-22 00:21 | NUR ---
JOEL Pt was anxious about not being able to sleep tonight as his meds were d/c'd. MElatonin was ordered, but pt does not believe that it will work. Pt agreeable to trying it. Pt stated "this is how this all started was from not sleeping and started this whole viscious cycle." PT rates his depression as low today. ANxiety was a bit higher. did put a new order in for seroquel and pt was still awake at 1100. Talked to him about trying the seroquel and he wanted to try it. PT appears to be sleeping at this time. WIll CTM sleep and for any new A/R.
--- NOTE | 2016-09-22 06:36 | NUR ---
Nursing Note Mold Dresser 11pm to 7am Pt in bed at start of shift, appears to have slept through the night. Monitored pt with q 15 minute face checks for safety, location and accountability.
--- NOTE | 2016-09-22 15:19 | NUR ---
Nursing Days Pt continues much the same. He reports his sleep as poor last night, anxiety & worries continue. He took his scheduled medication. No prn medications given. When asked by staff how he was he came across as mildly guarded stating "I'm fine" and continued to walk the hallways ending conversation. Pt pleasant towards his peers and participated in morning community meeting. No noted or expressed SI this shift.
[2016-09-22 15:25] VITALS: BP 122/85; PULSE 82; RESP 17
--- NOTE | 2016-09-22 17:54 | NUR ---
Observations [id number] Pt awake during start of shift, focused on sounds he may have been hearing. Asked this senior grant writer if they heard "beeping." Later in the day, there was construction in [employer] and pt asked this senior grant writer again if "those sounds are real." Pt still stating that he is struggling with sleep. He had a family meeting with and when asked how it went, pt said "well, not well if you're asking." Pt attended all meals, eating less today at an average of 60%. He was observed every 15 minutes of shift as directed.
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
--- NOTE | 2016-09-22 21:43 | NUR ---
Nurses Note Evening Patient has remained out on the unit,social with peers,attends groups. He continues to work with his on financial family affairs and remains anxious about it. He enjoyed a visit from a male friend. Patient continues to c/o sleep difficulties,casting repairer to assess sleep response from medications. Maintain q 15min. checks for safety and support. Addendum: 09/22/16 at 2146 by DEJAN EDWARDS RN Amended: Links added.
--- NOTE | 2016-09-23 04:16 | NUR ---
Nursing, NOC Patient visible at start of shift, sitting in day room doing a puzzle. Participated in evening group. Proactive w/ medication requests, approached RN to request HS meds. Tolerating new Rx Seroquel, no ASE noted at this time. Sleeping well thru the NOC. Q15 min safety/room checks thru the night. CTM for changes.
[2016-09-23 11:23] VITALS: BP 119/82; PULSE 88; RESP 18
--- NOTE | 2016-09-23 14:44 | NUR ---
Nursing Days Pt being proactive this morning and called the [facility] first thing this morning and received a call back. He then made a request of this nurse that I ensure the community sports coordinator fax his medical records to the [facility]. I let him know case management would see him and f/u with that request for him. Pt has been seen by the psychiatrist today and had his friend, Te, visit. He has been taking medications as prescribed, eating meals and after lunch briefly played Te[employer] with two male peers. CNCP. Support on unit as needed.
--- NOTE | 2016-09-23 16:18 | NUR ---
[facility] Day Shift Pt affect and behavior mostly unchanged from previous shifts. Pt maintained behavioral control throughout the shift. Pt affect appears flat, though pt appears more restless than previous shifts. Pt spends the majority of the shift resting/reading in his room, only briefly attending unit activities in the afternoon. Pt is appropriate with staff and peers when active on the unit, but is not social. Pt spends some time in the evening pacing the unit. Pt did not actively attend group activities throughout the shift. Pt attended all meals and ate approx 80% of all meals.
--- NOTE | 2016-09-23 17:59 | NUR ---
gate manager/Counselor: S: "I feel like I'm backsliding toward the thing that brought me here." O: Patient slept 5.75 hours last night per staff. Patient denies S/I and H/I. He denies auditory and visual hallucinations. Did not rate depression and anxiety. Faxed H&P, medication list, labs, and progress notes to [facility], fax [phone]. A: Patient is cooperative, anxious, apprehensive to out-patient treatment at times, fair insight, fair judgment. P: Follow care plan, coordinate with out-patient providers.
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
--- NOTE | 2016-09-24 05:43 | NUR ---
nursing, nights, 11-7 s- i can't sleep. can i have a sleeping pill ? thank you. o- has appeared to sleep after 5 to 0. received 10 mg of ambien with good effect. easily returned to sleep. assessed q 15 minutes. a- interupted sleep, medication help, no apparent distress. p- monitor behavior/emotional state, quality, times and amount of sleep, use and effect of medication. stephenie
--- NOTE | 2016-09-24 14:20 | NUR ---
Nursing Days Pt spent his time walking the hallway and quietly sitting in his room. While in his room he appears focused inward with his head in his hands. He presents as soft spoken and reserved in his interactions with this staff and peers. Taking medications as prescribed. No complaints made this shift. He did state he might have visitors today he was not sure. Continue to monitor and support on the unit as needed.
[2016-09-24 14:30] VITALS: BP 137/94; PULSE 88; RESP 16
--- NOTE | 2016-09-24 17:38 | NUR ---
Observations [id number] Pt appears more anxious and isolative to room today then observed in previous shifts. He asked this sql report writer on a few occasions if beeping sounds were being heard, to clarify whether or not he was hearing something that was really there. Pt good with ADL's but more resistant to group participation and less social with peers, isolating much of the day to room. Pt did use phone on a few occasions. Pt did attend meals but didn't eat much, an average of 75% for breakfast, 20% for lunch, and 50% for dinner. Pt observed every 15 minutes of shift as directed.
--- NOTE | 2016-09-24 18:58 | NUR ---
channel development manager/Counselor: S/O: Patient slept 7.25 hours last night per staff. Patient denies S/I and H/I. He denies auditory and visual hallucinations. Did not rate depression and anxiety. This underwriter solicitation director continues to coordinate with [facility] [place]. Patient may be able to be admitted to [facility] as early as Wednesday if all paperwork is completed prior to next week. A: Patient is cooperative, anxious, apprehensive to out-patient treatment at times, fair insight, fair judgment. P: Follow care plan, coordinate with out-patient providers.
--- NOTE | 2016-09-24 19:06 | NUR ---
Nurses Note Evening Patient has been in his room this shift sitting on his bed preoccupied with inner thoughts. He has on several occasions asked staff to verify overhead pages as he has been concerned about auditory hallucinations. Patient has been isolative and preoccupied in thought. He refused dinner tonight and appeared anxious and uncomfortable. His visited which appeared to improve his mood. Will maintain q 15min. checks for safety,encourage expression of thoughts,feelings with improved insight to maintain wellness. Addendum: 09/24/16 at 3 by DEJAN EDWARDS RN Amended: Links added.
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
--- NOTE | 2016-09-24 22:27 | NUR ---
Nurses Note Evening Patient was visited by his earlier and she reported that he stated to her,"I Can't eat,I can't sleep,I just want to ." Approached the patient about troubled thoughts and his ability to remain safe on the unit. Patient denied suicidal thoughts,feelings of self harm and requested his HS medications later "when it is quiet". Patient had previously asked the [facility] not to check on him tonight and was informed that we check all patients throughout the night. Will maintain q 15min. checks for safety. Addendum: 09/24/16 at 2235 by DEJAN EDWARDS RN Amended: Links added. Addendum: 09/24/16 at 2238 by DEJAN EDWARDS RN Nurses PRN Patient received Ambien 10mg,Klonopin 0.5mg PO PRN for sleep, hourly shift manager to assess response.
--- NOTE | 2016-09-25 00:09 | NUR ---
insomnia/anxiety: pt. appeared anxious, asking about meds, pt. wanted 10mg ambien for insomnia.
--- NOTE | 2016-09-25 05:33 | NUR ---
nursing, nights, 11-7 s/o- has appeared to sleep after 2230. up briefly at midnight and easily returned to sleep. assessed q 15 minutes. a- no apparent distress. p- monitor behavior/emotional state, quality, times and amount of sleep, use and effect of medication. stephenie
[2016-09-25 11:24] VITALS: BP 103/74; PULSE 121; RESP 18
--- NOTE | 2016-09-25 12:15 | NUR ---
NURS NOTE DAY Pt reports hearing a beeping sound that he identifies as an auditory hallucination. Denies hearing voices. Affect, restricted. Mood, anxious and depressed. Pt is currently with visitor. Medication adherent.
--- NOTE | 2016-09-25 19:29 | NUR ---
Beautician Apprentice/Counselor S:"I want to know the details of me going to [facility]." O: Patient slept 7 hours last night per staff. He denies any S/I and H/I. He denies auditory and visual hallucinations. Did not rate depression and anxiety. A: Patient is cooperative, anxious at times, apprehensive, fair insight, fair judgment. P: Follow care plan and coordinate with outpatient providers.
[2016-09-25] MEDS: OLANZapine Zydis ODT 5 mg Tablet PO SCH (21:52)
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
--- NOTE | 2016-09-25 23:30 | NUR ---
Observations 1900 to 0700 Pt attended wrap up group. Pt did not eat a snack. Pt appeared anxious and is observed being unable to settle into any activity with some mild pacing between his room and watching a movie in group room. Pt does not socialize with peers and appears focused on ruminating thoughts. Pt reported I hear everything. Call lights, vital machines, doors shutting. Pt maintained behavioral control. Pt appeared asleep at 2300 and pt respirations were observed when asleep. Staff completed 15 min close observations as ordered.
--- NOTE | 2016-09-26 06:09 | NUR ---
power and recovery shift engineer [id number] Pt participated in wrap up group with peers and appeared to be guarded, anxious, and distant. Pt requested to have Ambien and Clonazepam along with HS meds; he also requested another blanket. This nurse asked the Pt if he intended on harming himself tonight and he stated, "I am just trying to get some sleep". Pt affect flat and not as bright as he had been a couple of days ago where he had been seen playing Jenga and creating puzzles with peers. Pt Slept 7 hrs. Continue to monitor for mood changes, attempts to self-harm, emotional wellbeing, and q15min checks for safety. Care continues.
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
[2016-09-26 16:00] VITALS: BP 112/83; PULSE 85; RESP 16
--- NOTE | 2016-09-26 18:12 | NUR ---
[id number]. nurs. S: "I have a dry mouth... what can I do for it, I tried that, (sipping on juices and iced water) O:Pt with flat affect, c/o dry mouth, isolating in bedrm, mostly appearing to be unoccupied by any activity, reporting how difficult it was to be hospitalized without useful activity. Pt asking about arrangements that will need to be made here if he needs discharge on Wednesday to catch overnight flight to [facility]. for admission on Wednesday. Flight is at 1030pm. Pt reports that he continues to have AHs, sounds of doors banging and beeping noises that seem to have additional sounds after initial bang that worry pt. Pt hopeful that zyprexa will help and the med changes will reduce dry mouth concerns. Pt still very concerned and anxious about dealing with next step in tx. Pt talking about his concerns. and reading to distract himself to small degree. P:CNCP
--- NOTE | 2016-09-26 18:18 | NUR ---
Observations 0700 - 1900 Pt affect and mood was flat, anxious, brighter when engaged and isolative. Pt was in his room most of the shift. Pt was pleasant, polite and cooperative when approached. Pt maintained behavior throughout the shift. Pt speech was soft and eye contact was ok. Pt was offered snack but he declined. Pt attended community meeting and set a daily goal. Pt attended meals in D.R and ate approximately 50% of his meals. Pt keeps to himself, occasionally walks the hallway, sits in his room on the edge of the bed and will take short naps. Pt attends to ADLs. Pt was observed every 15 minutes through the shift as ordered.
[2016-09-26] MEDS: OLANZapine Zydis ODT 5 mg Tablet PO SCH (21:47)
--- NOTE | 2016-09-27 06:25 | NUR ---
[id number] Nursing Note Sleep= 6.75+hrs broken sleep. S: "I would like to take my medications at 10pm". "I am not ready to go to bed before that-it is still light outside". O: Patient continues to spend most of his time in his room or walking in the hallway. Has very little interaction with peers. Patient to fly out to [place] Wednesday night at 20:30. A: Appears anxious, restless. P: Monitor for safety and response to treatment. Follow plan of care.
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
--- NOTE | 2016-09-27 18:01 | NUR ---
[facility] Day Shift Pt affect and behavior mostly unchanged from previous shifts. Pt maintained behavioral control throughout the shift. Pt affect appears flat. Pt spends the majority of the shift resting/reading in his room, only briefly attending unit activities in the afternoon. Pt is appropriate with staff and peers when active on the unit, but is not social. Pt spends some time in the evening pacing the unit. Pt did not actively attend group activities throughout the shift. Pt attended all meals and ate approx 80% of all meals.
--- NOTE | 2016-09-27 19:14 | NUR ---
[id number]. nurs. S: " I can stay safe here there is nothing to .. I have been here, safe for 3 weeks " ... I don't know what the arrangements will be, will have to check to see if there is a space tomorrow I can't do anything from here". O: Pt increasingly concerned about setting up the plan for getting to [facility] with flight booked for Wednesday night 1030- 1050pm. Pt concerned about confirming admission, and wanting to know plan for getting from airport to [facility]. etc and feeling powerless to set up details from hospital. Dr Mckeon to review with community health navigator and hosp. risk team etc. Pt with apprehensive anxious affect. Pt still preoccupied by noises that he hears that he can not account for in his immediate environment. Pt concerned to sleep well tonight and stated that the 3 meds he had taken last night had worked well although left him groggy. P:CNCP
[2016-09-27] MEDS: OLANZapine Zydis ODT 5 mg Tablet PO SCH (21:22)
--- NOTE | 2016-09-28 05:55 | NUR ---
scene shifter [id number] Pt participated in wrap up group with peers and has no outburst or behavioral issues. Pt appears to have less anxiety, but affect flat this HS taking all medications and Clonazepam 0.5mg for anxiety and Ambien 10mg for insomnia. Pt took all meds and went to sleep. Pt slept 7.75 hrs uninterrupted. Continue to monitor for mood changes, emotional wellbeing, and q15min checks for safety. Care continues.
[2016-09-28] MEDS ORDERED: ZLP5T PO ×2 (10:45→12:38)
[2016-09-28] MEDS ORDERED: KLO5T PO ×2 (10:45→12:38)
[2016-09-28] MEDS ORDERED: OLAN5TAB25 PO ×2 (10:45→12:38)
[2016-09-28] MEDS ORDERED: ESCI10TA52 PO ×2 (10:45→12:38)
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
--- NOTE | 2016-09-28 14:19 | NUR ---
Cart Attendant Patient will discharge to his jhon at 7pm. She will drive him directly to [facility], at which time they will fly together to [place]. This is where [facility] is located. The clinic has received all discharge, medical clearance for wound, and medication list for the patient. The patients will be picking up the medications from [facility] [place] in [place]. She was able to create a safety plan with the doctor today over the phone. The patient states he has no SI and is willing to go to [facility]. He is able to contract for safety. Addendum: 09/28/16 at [address] [facility] Commodities Manager at [facility]: Anibal Heaton
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
--- NOTE | 2016-09-28 19:47 | NUR ---
DISCHARGE NOTE Pt. discharged from unit at 19:35 accompanied by his , with plan to [place] directly [place] [place] and take a flight to the [facility] in [place]. Pt. declined offer of PRN Klonopin 0.5 mg prior to discharge as he said it would be too sedating at that time. Pt. signed all of his paperwork. Pt. denied suicidal ideation or any safety concerns prior to discharge.
== END 2016-09-28 19:35 | disposition home or self-care (01) | DRG 580 ==
LOC: SED 15:41 → EDBD 15:41 → SAS 16:58 → OSC 19:37 → MHC 09-03 15:54
PROVIDERS: ADMIT Psychiatry & Neurology Psychiatry; ATTEND Surgery
PROC: 0JQ43ZZ Repair Right Neck Subcutaneous Tissue and Fascia, Percutaneous Approach (ICD-10-PCS; 2016-09-01)
PROC: 0W3 Anatomical Regions, General, Control (ICD-10-PCS; 2016-09-01)
PROC: 0BJ08ZZ Inspection of Tracheobronchial Tree, Via Natural or Artificial Opening Endoscopic (ICD-10-PCS; 2016-09-01)
PROC: 0DJ08ZZ Inspection of Upper Intestinal Tract, Via Natural or Artificial Opening Endoscopic (ICD-10-PCS; principal; 2016-09-01 16:54)
DX: S16.2XXA Laceration of muscle, fascia and tendon at neck level, initial encounter (principal); F32.3 Major depressive disorder, single episode, severe with psychotic features; F41.1 Generalized anxiety disorder; S11.91XA Laceration without foreign body of unspecified part of neck, initial encounter; S61.511A Laceration without foreign body of right wrist, initial encounter; X78.1XXA Intentional self-harm by knife, initial encounter; Y92.012 Bathroom of single-family (private) house as the place of occurrence of the external cause; G47.00 Insomnia, unspecified